=== PATIENT | female | born 1955 | race Caucasian/White ===

== ENCOUNTER 2017-04-12 12:26 | Inpatient (IN) | payer BC ==
--- NOTE | ~2017-04-12 | CONSULT ---
Radiation Oncology Consult [place] [id number] [place]. [address] NAME: DON HERNÁNDEZ DAVONTE : 57 STATUS : ADM IN PAT#: [id number] AGE: 61 ADM/REG DATE : 04/12/17 MR#: [id number] REPORT SERV DATE: 04/14/17 DICTATED BY: YASIR REYES DATE: 04/14/17 REPORT STATUS : Draft TRANSCRIBED BY: MODL DATE: 04/14/17 RADIATION ONCOLOGY CONSULTATION DIAGNOSIS: Newly diagnosed stage IV bladder sarcomatoid urothelial carcinoma. 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 She was previously followed by Dr. Artis and underwent a left distal ureterectomy with reimplantation three and a half years ago. She subsequently underwent a bladder tumor resection followed by induction BCG. Unfortunately, the patient was lost to followup and presented with recurrent abdominal pain. Cystoscopy noted a large necrotic bladder mass with bladder wall invasion. She was admitted for TURBT and this was performed on 04/12/2017. She noted a large bladder mass with final pathology confirming sarcomatoid urothelial carcinoma. She underwent a workup for abdominal pain including a CT of the abdomen and pelvis without contrast on 04/13/2017. There was noted multiple liver metastases as well as a large 16 cm left flank mass. The multiple soft tissue masses noted in the pelvis were suggestive of carcinomatosis. I am consulted to discuss palliative radiation. At today's visit, the patient reports she continues to have generalized abdominal pain. She is unable to isolate this to the left or the right side. She reports she has had weight loss over the past several months secondary to poor appetite. She continues to work. She denies any sites of bone pain, headaches, or new neurologic symptoms. She denies any hemoptysis or chest pain. She reports her bowels are functioning within normal limits. She continues to have difficulty with urination. PAST MEDICAL HISTORY: 1. Tobacco abuse. 2. Bladder and ureteral transitional cell carcinoma. 3. Crohn's. 4. Hypertension. 5. Anxiety. 6. Noncompliance. PAST SURGICAL HISTORY: 1. Right partial nephrectomy. 2. Left distal ureterectomy. 3. Colon resection. REVIEW OF SYSTEMS: Complete and extended review of system was performed. Pertinent positives noted in the HPI. MEDICATIONS: Medication reconciliation has been reviewed and discussed. Please refer to EMR. Radiation Oncology Consult [address] [place]. [address] NAME: DON HERNÁNDEZ DAVONTE : 57 STATUS : ADM IN PAT#: [id number] AGE: 61 ADM/REG DATE : 04/12/17 MR#: [id number] REPORT SERV DATE: 04/14/17 DICTATED BY: YASIR REYES DATE: 04/14/17 REPORT STATUS : Draft TRANSCRIBED BY: JACQUELINE DATE: 04/14/17 ALLERGIES: PENICILLIN AND CODEINE. SOCIAL HISTORY: The patient is and lives in [place]. She works for the [employer]. She smokes. She denies alcohol or illicit drug use. FAMILY HISTORY: No family history significant for cancers. PHYSICAL EXAMINATION: ECOG performance status of 2. VITAL SIGNS: Height 5 feet 2 inches. Afebrile. Remainder of vital signs stable, please refer to nursing. GENERAL: Obese 61-year-old female lying comfortably in hospital bed. She is accompanied by her granddaughter. HEENT: Normocephalic. Extraocular movements intact. Moist mucous membranes. LYMPHATICS: No supraclavicular or cervical lymphadenopathy. RESPIRATORY: Nonlabored breathing. No audible wheezing. GI: Obese abdomen, nondistended. No tenderness to palpation. EXTREMITIES: No edema. Normal range of motion. NEURO: Cranial nerves intact. Nonfocal exam. Strength and sensation intact in all extremities. PSYCH: Verbalized understanding of our discussion. Demonstrates appropriate insight. IMAGING: I personally reviewed the CT, which shows a large left flank mass as well as multiple hepatic metastases. ASSESSMENT AND PLAN: A 61-year-old female with newly diagnosed stage IV urothelial carcinoma with sarcomatoid differentiation, who is seen for consideration of palliative radiation. I discussed her imaging findings and diagnosis of stage IV bladder cancer. We discussed that treatment would not be curative. I discussed the role of palliative radiation for symptom management. She has generalized abdominal pain, was unable to point to an isolated location of pain. She has a very large left flank mass that may benefit from palliative radiation. I believe her most important modality would be chemotherapy if she is a candidate. I will await the evaluation by Medical Oncology. I discussed palliative radiation will be approximately one to two weeks of treatment with the goal improving her symptoms. I appreciate the opportunity to take part in this patient's care. VANESSA/JACQUELINE Yasir Reyes MD / [id number] Radiation Oncology Consult [address] [address] NAME: DON HERNÁNDEZ DAVONTE : 57 STATUS : ADM IN PAT#: [id number] AGE: 61 ADM/REG DATE : 04/12/17 MR#: [id number] REPORT SERV DATE: 04/14/17 DICTATED BY: YASIR REYES DATE: 04/14/17 REPORT STATUS : Draft TRANSCRIBED BY: JACQUELINE DATE: 04/14/17 CC: Sanjiv Artis M.D.
--- NOTE | ~2017-04-12 | DS ---
Discharge Summary [place] [id number] [facility] [place] [address] NAME: DON HERNÁNDEZ DAVONTE : 57 STATUS : DIS IN PAT#: [id number] AGE: 61 ADM/REG DATE : 04/12/17 MR#: [id number] REPORT SERV DATE: 04/30/17 DICTATED BY: NASH CRUZ DATE: 04/27/17 REPORT STATUS : Draft TRANSCRIBED BY: JACQUELINE DATE: 04/27/17 Data Collection from hospitalization DISCHARGE DIAGNOSES: 1. Bladder mass. 2. Hypertension. 3. Diet-controlled diabetes mellitus. 4. Tobacco abuse. 5. History of oncocytoma with right partial nephrectomy. 6. History of high-grade transitional cell carcinoma, status post left distal ureterectomy. 7. Bladder cancer. 8. Crohn's disease. 9. Anxiety. 10.Hyperlipidemia. 11.Noncompliance. 12.Obesity. CONSULTATIONS: 1. Vamsi Fabian M.D. 2. Abdiel Reyes MD. PROCEDURES PERFORMED: 1. Transurethral resection of bladder tumor (greater than 5 cm) and bilateral retrograde pyelogram on 04/12/2017. 2. CT scan of the abdomen and pelvis without contrast on 04/13/2017. PATHOLOGY: Urinary bladder, left posterior and lateral wall tumor, transurethral resection - sarcomatoid urothelial carcinoma, muscularis propria invasion present. Urinary bladder, left posterior and lateral bladder wall tumor - transurethral resection, sarcomatoid urothelial carcinoma, muscularis propria invasion present. Urinary bladder neck biopsy - invasive high-grade urothelial carcinoma, muscularis propria present. MEDICATIONS: Percocet 7.5/325 one to two tablets every four hours as needed, Paxil 20 mg daily, and Phenergan 25 mg every eight hours as needed. CONDITION AT DISCHARGE: Stable. DISPOSITION: The patient was discharged home on a diabetic diet with no concentrated carbohydrates and activities as instructed. She would follow up with Dr. Nash Cruz as instructed. She would follow up with Dr. Vamsi Fabian as instructed. She would follow up with Dr. Abdiel Reyes as instructed. HOSPITAL COURSE: This is a 61-year-old female who has a history of bladder and left distal ureteral cancer. She had a left distal ureterectomy with reimplantation three and half years ago. Shortly thereafter, she had a bladder tumor resected and induction BCG. She continues to smoke. She refused to come back for followup cystoscopic exam. I last saw for about two years prior to this admission. She was working at the office on the day prior to Discharge Summary [address] [place]. [address] NAME: DON HERNÁNDEZ DAVONTE : 57 STATUS : DIS IN PAT#: [id number] AGE: 61 ADM/REG DATE : 04/12/17 MR#: [id number] REPORT SERV DATE: 04/30/17 DICTATED BY: NASH CRUZ DATE: 04/27/17 REPORT STATUS : Draft TRANSCRIBED BY: MODL DATE: 04/27/17 this admission with severe pelvic pain. She had been given antibiotics without much benefit. She has not particularly had hematuria. Cystoscopy showed a very large necrotic- appearing bladder tumor at the posterior/left lateral bladder wall. Treatment options were discussed and it was elected to proceed with surgical intervention. She was admitted to the hospital for further evaluation and treatment. Upon admission, she was taken to the operating room where she underwent the above-mentioned procedure. She tolerated this well, and there were no complications. On postop day #1, pathology results had revealed sarcomatoid urothelial carcinoma. CT scan had shown widespread pelvic metastasis and liver metastasis. Her prognosis was felt to be poor. This was discussed with the patient and her daughter. On 04/14/2017, she was seen by Dr. Vamsi Fabian regarding metastatic urothelial cancer, which was high grade. The tumor measured 3.2 x 2.4 x 0.4 cm. It was staged as a stage II. She had subsequently developed another bladder tumor that was resected and she has been given BCG. She had not followed up with her cystoscopic exams as recommended. She had presented at this time with severe pelvic pain and cystoscopy revealed large necrotic-appearing bladder tumor at the posterior left lateral bladder wall. She had undergone TURBT. CT scan of the abdomen and pelvis revealed multiple liver lesions at 5.5 cm in greatest dimension. There was also right hydronephrosis and large mass at the left flank measuring 16 x 6.7 x 12.1 cm. Biopsy from the bladder mass revealed sarcomatoid urothelial carcinoma on the left posterior and lateral wall. Biopsy at the bladder neck revealed invasive high-grade urothelial cancer. She had been asked to make recommendations regarding chemotherapy. The situation was discussed with the patient and her family. Plans were made to began palliative chemotherapy the following week with a [place] agent as well as gemcitabine. They were told that this was a difficult situation and would not be curable. She may be a candidate for immunotherapy after completing chemotherapy. She was going to be scheduled to follow up with him the following week to began. The patient was also seen by Dr. Abdiel Reyes regarding the newly diagnosed stage IV bladder sarcomatoid urothelial carcinoma. At the time of this consult, the patient continued to have generalized abdominal pain. She was unable that isolate this to the left or right side. She reports that she had weight loss over the past several months secondary to a poor appetite. She continued to have difficulty urinating. The role of palliative radiation for symptom management was discussed. He felt that her most important modality would be chemotherapy if she was a candidate. He was going to await the evaluation by Medical Oncology. He discussed that palliative radiation would be approximately one to two weeks of treatment with the goal of improving her symptoms. Discharge planning was performed. She did have some anxiety and bloating. On 04/15/2017, her anxiety level was still high. She still had some abdominal discomfort on the right. She reported some depression. Paxil was started. She had several loose large bowel movements. She was ambulatory. Percocet was alleviating her pain. Discharge instructions were given. Due to her improved and stable condition, she was discharged home with the above-stated instructions. Information collected by: Rolanda Joseph I submit the above information as my discharge summary. Discharge Summary [address] [address] NAME: DON HERNÁNDEZ DAVONTE : 57 STATUS : DIS IN PAT#: [id number] AGE: 61 ADM/REG DATE : 04/12/17 MR#: [id number] REPORT SERV DATE: 04/30/17 DICTATED BY: NASH CRUZ DATE: 04/27/17 REPORT STATUS : Draft TRANSCRIBED BY: JACQUELINE DATE: 04/27/17 EVA/JACQUELINE Nash Cruz M.D. / [id number] CC: Alvino Agee MD Mark S Womack IV, M.D. Dr. Paul Ballinger
--- NOTE | ~2017-04-12 | OP ---
Record Of Operation [facility] [address] [place]. [address] NAME: DON HERNÁNDEZ DAVONTE : 57 STATUS : ADM IN PAT#: [id number] AGE: 61 ADM/REG DATE : 04/12/17 MR#: [id number] REPORT SERV DATE: 04/12/17 DICTATED BY: NASH CRUZ DATE: 04/12/17 REPORT STATUS : Draft TRANSCRIBED BY: MODL DATE: 04/12/17 DATE OF PROCEDURE: 04/12/2017 PREOPERATIVE DIAGNOSIS: Bladder mass. POSTOPERATIVE DIAGNOSIS: Bladder mass. PROCEDURE PERFORMED: 1. Transurethral resection of bladder tumor (greater than 5 cm). 2. Bilateral retrograde pyelogram. ANESTHESIA: General. BLOOD LOSS: 20 mL. SPECIMEN: 1. Bladder tumor from the posterior and left lateral bladder wall. 2. Deep resection of bladder tumor. 3. Bladder neck. COMPLICATIONS: None. DRAINS: A 22-Luxembourger 3-way Downey catheter. INDICATION: Ms. Hernández is a 61-year-old with history of left ureteral bladder cancer. She had not shown up for surveillance cystoscopy appointments. She walked into the office yesterday with bladder pain. Cystoscopy showed a large bladder tumor, and she was brought to the operating for TURBT. TECHNIQUE: Informed consent was obtained. She was given Levaquin preoperatively. She was brought to the operating room, general anesthesia was administered. Genitals and perineum were prepped and draped in the lithotomy position. Physical exam showed probable invasion at the urethral meatus/bladder neck as well as probable invasion of the anterior vaginal wall at the left lateral fornix. Digital rectal exam showed probable extravesicular disease at the left paracolic gutter. I re-gloved. Rigid cystoscopy was performed. The bladder neck was fixed. I dilated the bladder neck with female sounds to 28-Luxembourger. A 22-Luxembourger rigid cystoscope was advanced. There was an approximately 8 cm bladder tumor on the left posterior lateral bladder wall and a prior left ureteral reimplantation. The reimplantation site at the left bladder dome was visible and not involved with tumor. The right UO could only be visualized with a 70 degree lens. I placed a 26-Luxembourger resectoscope loop. Glycine was used for irrigation. Approximate resection time was 50 minutes. The very large bladder tumor from the posterior left lateral bladder wall was resected down to the apparent detrusor fibers. This was a broad-based and Record Of Operation [address] [place]. [address] NAME: DON HERNÁNDEZ DAVONTE : 57 STATUS : ADM IN PAT#: [id number] AGE: 61 ADM/REG DATE : 04/12/17 MR#: [id number] REPORT SERV DATE: 04/12/17 DICTATED BY: NASH CRUZ DATE: 04/12/17 REPORT STATUS : Draft TRANSCRIBED BY: MODKevin DATE: 04/12/17 sessile. It appeared to be at least muscle invasive tumor. Bleeders were fulgurated for hemostasis. The left UO was surgically absent given prior distal ureterectomy. The bulk of tumor was resected and then resected the bed of the deep tissue separately to aid in pathologic analysis of muscle invasion. At this point, the rigid cystoscopy at this point, the bed of resection was fulgurated with a rollerball. There was a small additional tumor at the left posterior bladder wall. This was also resected specimen was sent with the previous specimen. I exchanged to a 22-Luxembourger rigid cystoscope. The left ureteral reimplantation site was cannulated with an 8-Luxembourger cone-tipped catheter. Retrograde pyelogram showed moderate to severe hydronephrosis. No extravasation. No filling defect. With the 70 degree lens, I was able to identify the right UO. This was also cannulated with a cone-tipped catheter and retrograde pyelogram was performed. There was moderate right hydroureteronephrosis. It was difficult to distend the renal pelvis. No filling defects in the ureter. My impression was that of hydroureter on the right due to her urinary retention and hydroureter on the left due to either prior reimplantation or urinary retention. I removed the cystoscope, placed a 22-Luxembourger 3-way Downey catheter with 20 mL in the balloon. B and O suppository was given and CBI was started. She was taken to recovery room in satisfactory condition. I will check a noncontrast CT of the abdomen and pelvis on hospital day #2 for staging purposes. KATHI/JACQUELINE Nash Cruz M.D. / [id number] CC: Nash Cruz M.D.
--- NOTE | ~2017-04-12 | CN ---
Consultation Report [facility] [address] [facility] [place]. [address] NAME: DON HERNÁNDEZ DAVONTE : 57 STATUS : ADM IN [facility]#: [id number] AGE: 61 ADM/REG DATE : 04/12/17 MR#: [id number] REPORT SERV DATE: 04/14/17 DICTATED BY: IQRA GALO MARK SANDERS DATE: 04/14/17 REPORT STATUS : Draft TRANSCRIBED BY: MODL DATE: 04/14/17 CONSULTATION DATE OF CONSULTATION: 04/14/2017 REASON FOR CONSULTATION: Metastatic urothelial cancer. CHIEF COMPLAINT: Bladder mass. HISTORY OF PRESENT ILLNESS: Ms. Hernández is a 61-year-old white female with a history of a bladder and left distal urothelial cancer. She had a left distal ureter resection in 04/2014. Pathology showed invasive urothelial carcinoma that was high grade. Tumor measured 3.2 x 2.4 x 0.4 cm. It was staged as stage II. She subsequently developed another bladder tumor that was resected, and she was given BCG. She did not follow with her cystoscopic exams as recommended. She presented to Dr. Artis's office with severe pelvic pain. Cystoscopy was performed and revealed a large necrotic-appearing bladder tumor at the posterior left lateral bladder wall. She was admitted for a TURBT. She had CTs of the abdomen and pelvis without contrast, which revealed multiple liver lesions up to 5.5 cm in greatest dimension. There was also right hydronephrosis and a large mass at the left flank measuring 16 x 6.7 x 12.1 cm. Biopsy from her bladder mass revealed sarcomatoid urothelial carcinoma on the left posterior and lateral wall. Biopsy of the bladder neck revealed invasive high-grade urothelial cancer. I was asked to see Ms. Hernández for recommendations on chemotherapy. PAST MEDICAL HISTORY: 1. Bladder cancer as above. 2. Crohn's, status post colon resection. 3. Hypertension. 4. Anxiety. SOCIAL HISTORY: She is an active smoker. FAMILY HISTORY: She has no family history of bladder cancers. ALLERGIES: PENICILLIN AND CODEINE. HOME MEDICATIONS: Reviewed on the chart. REVIEW OF SYSTEMS: Positive for pelvic pain, but otherwise 10-point review of systems negative. PHYSICAL EXAMINATION: VITAL SIGNS: Blood pressure 167/80, pulse 75, temperature 98.1. GENERAL APPEARANCE: Elderly appearing, no acute distress. Consultation Report [facility] [address] [place]. [address] NAME: DON HERNÁNDEZ DAVONTE : 57 STATUS : ADM IN PAT#: [id number] AGE: 61 ADM/REG DATE : 04/12/17 MR#: [id number] REPORT SERV DATE: 04/14/17 DICTATED BY: IQRA GALO MARK SANDERS DATE: 04/14/17 REPORT STATUS : Draft TRANSCRIBED BY: JACQUELINE DATE: 04/14/17 HEENT: Anicteric sclerae. Oropharynx clear. NECK: Supple. No lymphadenopathy. CARDIOVASCULAR: Regular rate and rhythm. Normal S1, S2. LUNGS: Clear to auscultation bilaterally. Fair effort. ABDOMEN: Soft, nontender. No organomegaly. EXTREMITIES: No clubbing, cyanosis, edema. LABORATORY DATA: Creatinine 1.73, hemoglobin 9.8. ASSESSMENT AND PLAN: Ms. Hernández is a 61-year-old white female with metastatic urothelial cancer with sarcomatoid features. She has a very large pelvic mass as well as multiple large liver metastasis. I discussed the situation with the patient and her family. We will plan on beginning palliative chemotherapy next week with a [place] agent as well as gemcitabine. I discussed with them that this is a difficult situation and would not be curable. She may be a candidate for immunotherapy after completing chemotherapy. I answered all of their questions. I will schedule an appointment to see me mid next week to begin. Thank you for the consultation. KAY/JACQUELINE Vamsi Galo IV, M.D. / [id number] CC: Sanjiv Artis M.D.
--- NOTE | ~2017-04-12 | HP ---
History And Physical [place] [address] [place]. [address] NAME: DON HERNÁNDEZ DAVONTE : 57 STATUS : ADM IN [facility]#: [id number] AGE: 61 ADM/REG DATE : 04/12/17 MR#: [id number] REPORT SERV DATE: 04/12/17 DICTATED BY: NASH CRUZ DATE: 04/12/17 REPORT STATUS : Draft TRANSCRIBED BY: MODL DATE: 04/12/17 DATE OF ADMISSION: 04/12/2017 CHIEF COMPLAINT: Bladder mass. HISTORY OF PRESENT ILLNESS: Ms. Hernández is a 61-year-old history of bladder and left distal ureteral cancer. She had a left distal ureterectomy with reimplantation three and a half years ago. Shortly thereafter, she had a bladder tumor resected and induction BCG. She continues to smoke. She refused to come back for followup cystoscopic exams. I last saw her about two years ago. 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 She had been given antibiotics without much benefit. She had not particularly had hematuria. Cystoscopy was performed showing a very large necrotic-appearing bladder tumor at the posterior/left lateral bladder wall. She is admitted for TURBT for presumed T2 bladder tumor. PAST MEDICAL HISTORY: 1. Tobacco abuse. 2. Right partial nephrectomy for oncocytoma. 3. Left distal ureterectomy for high-grade TCC. 4. Bladder cancer. 5. Crohn's, status post prior colon resection. 6. Hypertension. 7. Anxiety. ALLERGIES: PENICILLIN AND CODEINE. SOCIAL HISTORY: Still smokes. . FAMILY HISTORY: Noncontributory. REVIEW OF SYSTEMS: No back pain. No bone pain. She has had severe pelvic pain and strains to void. No nausea or vomiting. Otherwise review is negative x10 body systems. PHYSICAL EXAMINATION: VITAL SIGNS: Height 5 feet 2 inches, blood pressure 146/77, pulse 80, respirations 12. GENERAL: An obese 61-year-old appearing her usual state of health, in no acute distress. HEENT: Sclerae anicteric. LUNGS: Clear. HEART: Regular rhythm. CHEST: Clear anteriorly. ABDOMEN: Soft, nontender, nondistended, obese. A well-healed lower midline incision. No rebound or guarding. No right or left CVA tenderness. : Suprapubic area is tender on pelvic exam. The bladder neck is fixed and firm with probable invasion of tumor at the left vaginal fornix. LYMPHATICS: No supraclavicular or inguinal adenopathy. History And Physical [address] [place]. [address] NAME: DON HERNÁNDEZ DAVONTE : 57 STATUS : ADM IN PAT#: [id number] AGE: 61 ADM/REG DATE : 04/12/17 MR#: [id number] REPORT SERV DATE: 04/12/17 DICTATED BY: NASH CRUZ DATE: 04/12/17 REPORT STATUS : Draft TRANSCRIBED BY: JACQUELINE DATE: 04/12/17 LABS: White blood cell count 10, hematocrit 34, platelets 337. 3.0, creatinine is 2.26. IMAGING: None available to review. IMPRESSION: Bladder cancer likely T3 NX MX. PLAN: 1. Patient is admitted for a cystoscopy and transurethral resection of bladder tumor. We will admit her postop for CBI. Will hydrate her and if creatinine appears adequate, we will get a CT of the abdomen and pelvis with IV contrast. If creatinine does not improve, then CT of abdomen and pelvis without IV contrast. 2. Smoking cessation was again discussed. KATHI/JACQUELINE Nash Cruz M.D. / [id number] CC: Nash Cruz M.D.
[~2017-04-12 12:26] MED LIST: ACET500CAP PO; ASAB PO; ATV.5 PO; BEN25 PO; BIAXIN250 PO; CHERATUSSI1 OR; CIP5 PO; ENTOCORT3 PO; GLUCPH PO; LEVAQUIN5T PO; LIPITOR40 PO; NORV5 PO; PCET PO; PERCOCET1 TA2 PO; PHEN50TAB PO; PR25 PO; PRIN5 PO; PYR200 PO; RANITIDINE300 MG PO; VIVELLE-DOT0.05 MG TOP
[2017-04-12 12:58] LABS: BASOPHILS 0.4 %; BASOPHILS ABSOLUTE 0.04 10/3/uL (0.0-0.16); EOSINOPHILS 1.4 %; EOSINOPHILS ABSOLUTE 0.15 10/3/uL (0.0-0.53); HEMATOCRIT 34.1 % (36.0-48.0); HEMOGLOBIN 11.6 g/dL (12.0-16.0); IMMATURE GRANULOCYTES 0.3 %; IMMATURE GRANULOCYTES ABSOLUTE 0.03 10/3/uL (0.0-0.11); LYMPHOCYTES 19.3 %; LYMPHOCYTES ABSOLUTE 2.02 10/3/uL (0.67-4.30); MEAN CORPUSCULAR HEMOGLOB 26.7 pg (26.0-34.0); MEAN PLATELET VOLUME 9.8 fL (9.2-13.0); MONOCYTES 4.6 %; MONOCYTES ABSOLUTE 0.48 10/3/uL (0.21-1.20); NEUTROPHILS ABSOLUTE 7.76 10/3/uL (2.02-8.40); RED CELL COUNT 4.34 10/6/uL (4.0-5.6); WHITE BLOOD CELLS 10.5 10/3/uL (4.5-10.5)
[2017-04-12 12:59] LABS: MANUAL DIFF NO %; MEAN CORPUSCULAR VOLUME 78.6 fL (80-100); PLATELET COUNT 437 10/3/uL (150-400)
[2017-04-12 13:13] LABS: ALBUMIN 2.6 G/DL (3.5-5.0); CALCIUM, SERUM 9.6 MG/DL (8.5-10.4); CHLORIDE, SERUM 102 MMOL/L (96-112); CO2 (CARBON DIOXIDE) 27 MMOL/L (24-34); SGOT(AST) 32 U/L (5-40); SGPT(ALT) 19 U/L (5-65); SODIUM, SERUM 139 MMOL/L (135-148); TOTAL BILIRUBIN 1.1 MG/DL (0-1.2)
[2017-04-12 13:14] LABS: A/G RATIO 0.5 (0.7-1.9); ALKALINE PHOSPHATASE 92 U/L (45-117); BUN (BLOOD UREA NITROGEN) 26 MG/DL (6-23); CREATININE 2.26 MG/DL (0.55-1.02); GFR AFRICAN AMERICAN 26 ML/MIN (>=60); GFR NON AFRICAN AMERICAN 23 ML/MIN (>=60); GLOBULIN 5.7 G/DL (2.5-4.1); GLUCOSE, SERUM 100 MG/DL (60-99); TOTAL PROTEIN 8.3 G/DL (6.0-8.5)
[2017-04-13 04:30] LABS: HEMOGLOBIN 9.8 g/dL (12.0-16.0)
[2017-04-13 04:33] LABS: HEMATOCRIT 29.2 % (36.0-48.0)
[2017-04-13 04:38] LABS: BUN (BLOOD UREA NITROGEN) 26 MG/DL (6-23); CHLORIDE, SERUM 103 MMOL/L (96-112); CO2 (CARBON DIOXIDE) 26 MMOL/L (24-34); CREATININE 2.15 MG/DL (0.55-1.02); GFR AFRICAN AMERICAN 28 ML/MIN (>=60); GFR NON AFRICAN AMERICAN 24 ML/MIN (>=60); GLUCOSE, SERUM 92 MG/DL (60-99); SODIUM, SERUM 137 MMOL/L (135-148)
[2017-04-13 04:45] LABS: CALCIUM, SERUM 8.5 MG/DL (8.5-10.4)
[2017-04-14 07:04] LABS: BUN (BLOOD UREA NITROGEN) 21 MG/DL (6-23); CALCIUM, SERUM 8.8 MG/DL (8.5-10.4); CHLORIDE, SERUM 108 MMOL/L (96-112); CO2 (CARBON DIOXIDE) 23 MMOL/L (24-34); CREATININE 1.73 MG/DL (0.55-1.02); GFR AFRICAN AMERICAN 37 ML/MIN (>=60); GFR NON AFRICAN AMERICAN 32 ML/MIN (>=60); GLUCOSE, SERUM 77 MG/DL (60-99); POTASSIUM, SERUM 3.6 MMOL/L (3.5-5.3); SODIUM, SERUM 140 MMOL/L (135-148)
[2017-04-15 06:19] LABS: BUN (BLOOD UREA NITROGEN) 22 MG/DL (6-23); CALCIUM, SERUM 8.6 MG/DL (8.5-10.4); CHLORIDE, SERUM 108 MMOL/L (96-112); CO2 (CARBON DIOXIDE) 22 MMOL/L (24-34); CREATININE 1.73 MG/DL (0.55-1.02); GFR AFRICAN AMERICAN 37 ML/MIN (>=60); GFR NON AFRICAN AMERICAN 32 ML/MIN (>=60); POTASSIUM, SERUM 3.8 MMOL/L (3.5-5.3); SODIUM, SERUM 138 MMOL/L (135-148)
[2017-04-15 06:20] LABS: GLUCOSE, SERUM 110 MG/DL (60-99)
[2017-04-15] MEDS ORDERED: PERCOCET 7.5/321 TAB PO (15:24)
[2017-04-15] MEDS ORDERED: PAX20 PO (15:25)
== END 2017-04-15 19:07 | disposition home or self-care (01) | DRG 669 ==
LOC: SDC 12:26 → 4SO 18:02
PROVIDERS: Urology
PROC: BT141ZZ Fluoroscopy of Kidneys, Ureters and Bladder using Low Osmolar Contrast (ICD-10-PCS; 2017-04-12)
PROC: 0TBB8ZZ Excision of Bladder, Via Natural or Artificial Opening Endoscopic (ICD-10-PCS; principal; 2017-04-12 13:45)
PROC: 0TBC8ZZ Excision of Bladder Neck, Via Natural or Artificial Opening Endoscopic (ICD-10-PCS; 2017-04-12 13:45)
DX: C67.9 Malignant neoplasm of bladder, unspecified (principal); N13.30 Unspecified hydronephrosis; I12.9 Hypertensive chronic kidney disease with stage 1 through stage 4 chronic kidney disease, or unspecified chronic kidney disease; E66.9 Obesity, unspecified; F41.9 Anxiety disorder, unspecified; F17.210 Nicotine dependence, cigarettes, uncomplicated; Z90.49 Acquired absence of other specified parts of digestive tract; Z90.5 Acquired absence of kidney; Z88.0 Allergy status to penicillin; Z88.5 Allergy status to narcotic agent; N18.2 Chronic kidney disease, stage 2 (mild)
CPT/HCPCS: 71010; 74176; 74420; 80048; 80053; 82962; 83735; 85014; 85018; 85025; 88305; 88307; 93005; A9270-GY; J1170; J2250; J2405; J2550; J2710; J3010; Q9967